=== PATIENT | female | born 1995 | race Caucasian/White ===

== ENCOUNTER 2021-12-02 02:56 | Emergency (ER) | payer OTHER ==
[~2021-12-02] VITALS: Ht 154.9 cm; Wt 102.1 kg
[2021-12-02 03:47] VITALS: BP 141/77
--- NOTE | 2021-12-02 03:52 | NUR ---
DR. LAW ORDAZ AT PT'S BEDSIDE FOR PELVIC EXAM WITH FEMALE RN WINEMAKER.
--- NOTE | 2021-12-02 04:00 | NUR ---
SEEN BY DR NEVES AT BEDSIDE
--- NOTE | 2021-12-02 04:20 | NUR ---
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
--- NOTE | 2021-12-02 04:28 | NUR ---
Patient discharged to home in stable condition. Written and verbal after care instructions given. Patient verbalizes understanding of instruction.
== END 2021-12-02 04:29 | disposition home or self-care (01) ==
LOC: ER 03:03
DX: L73.9 Follicular disorder, unspecified (principal); Z60.2 Problems related to living alone
CPT/HCPCS: 36415; 86592; 86593; 87806